=== PATIENT | male | born 1990 | race Caucasian/White ===

== ENCOUNTER 2020-07-07 20:58 | Emergency (ER) | payer SELFPAY ==
[2020-07-07] MEDS ORDERED: Sodium Chloride 0.9% 10 ML Syringe FLUSH PRN (21:07)
[2020-07-07] MEDS ORDERED: Sodium Chloride 0.9% 2.5 ML Syringe FLUSH PRN (21:07)
[2020-07-07] MEDS ORDERED: Ketorolac 30 MG/ML SDV IVPUSH ONE (21:07)
--- NOTE | 2020-07-07 21:14 | EDM.PDOC ---
ED HPI GENERAL MEDICAL PROBLEM - General Chief Complaint: Chest Pain Stated Complaint: CHEST PAIN Time Seen by Provider: 07/07/20 21:07 - History of Present Illness INITIAL COMMENTS - FREE TEXT/NARRATIVE: HISTORY AND PHYSICAL: History of present illness: This is a 29-year-old gentleman who has no history for hypertension, diabetes, prior CAD, negative family history of CAD, no tobacco, no cholesterol, who presents ER today complaining of left-sided chest pain that is been constant for 3 days. Patient reports that he has some discomfort in his left arm. Patient denies any nausea, vomiting, diarrhea, shortness of breath, diaphoresis. Patient reports no change with exertion or rest. Patient reports no change with inspiration or cough. Patient reports no change with meals or position. Patient reports that the pain is just been constantly there for 3 days straight. Patient denies any exacerbating or relieving factors. Patient denies any recent fevers, shakes, chills, nausea, vomiting, diarrhea, dysuria, frequency, urgency, abdominal pain, melena, bright red blood per rectum. Patient reports he has been tolerating p.o. solids and liquids well. Patient reports that he was recently diagnosed with coronavirus approximately 1 month ago but has had no recent symptoms. 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 Patient reports no increased exertional effort over the last several days. Review of systems: As per history of present illness and below otherwise all systems reviewed and negative. Past medical history: As per history of present illness and as reviewed below otherwise noncontributory. Surgical history: As per history of present illness and as reviewed below otherwise noncontributory. Social history: No reported history of drug or alcohol abuse. Family history: As per history of present illness and as reviewed below otherwise noncontributory. Physical exam: Constitutional: Patient is oriented to person, place, and time. Appears well- developed and well-nourished. No distress. HEENT: Moist mucous membranes Head: Normocephalic and atraumatic Eyes: Right eye exhibits no discharge. Left eye exhibits no discharge. No scleral icterus Neck: Normal range of motion. No tracheal deviation present. Cardiovascular: Normal rate and regular rhythm. Pulmonary: Effort normal, no respiratory distress. Abdominal: No distention Musculoskeletal: Normal range of motion Neurologic: Alert and oriented to person, place and time. Skin: [place], warm and dry. Psychiatric: Normal mood and affect. Behavior is normal. Judgment and thought content normal. Nursing note and vital signs have been reviewed Patient's ER physical exam is normal. Patient has no reproducible tenderness to palpation with palpation to his anterior chest wall. Patient has no pain with ambulation in the ED. Patient has no pain with deep inspiration or cough. Patient's heart is regular rate and rhythm with an S1-S2. Diagnostics: EKG: As interpreted by ER physician: Jessi: Nonspecific ST-T wave abnormalities Normal axis No evidence of ST elevation AR Normal sinus rhythm heart rate of 81 Chest Xray: Normal cardiac silhouette No infiltrates or effusions identified. No PTX No evidence of acute bony fracture. As interpreted by ER MD: Jessi [employer]: Toradol 30 mg IV Assessment and plan: This is a 29-year-old gentleman who presents to the ER today with atypical chest pain for cardiac etiology. Patient has had recent diagnosis of coronavirus. Patient will have a CBC, CMP, troponin, D-dimer checked. Patient's EKG is nondiagnostic in nature. Patient with a chest x-ray ordered. Patient given Toradol and will be reevaluated. 10:30 PM: Patient reevaluated by me. Patient reports that his pain has not changed while in the ED. Patient's ER work-up is been unremarkable. Patient has a normal CBC, CMP, troponin, D-dimer, EKG, chest x-ray. Etiology of the patient's pain is unclear however appears to be noncardiac, not PE, not dissection, not pneumonia, not pneumothorax in nature. Patient be discharged home with instructions to follow-up with his primary care physician. Reassessment at the time of disposition demonstrates that the patient is in no acute distress. The patient has remained stable throughout the entire ED visit and is without objective evidence for acute process requiring urgent intervention or hospitalization. The patient is stable for discharge, counseling is provided as documented above, discussed symptomatic treatment and specific conditions for return. I have spoken with the patient/caregiver and discussed todays findings, in addition to providing specific details for the plan of care. Questions are answered and there is agreement with the plan. Definitive disposition and diagnosis as appropriate pending reevaluation and review of above. 8:32 PM, 07/08/2020 Follow-up call made for continuity of care. Patient reports feels well with no change in symptoms. chest/ L arm Pain Score (Numeric/FACES): 6 - Related Data Allergies Allergy/AdvReac Type Severity Reaction Status Date / Time No Known Allergies Allergy Verified 07/07/20 21:03 Home Meds: Home Meds Omeprazole 20 mg PO DAILY 07/07/20 [History] ED ROS GENERAL - Review of Systems Review Of Systems: See Below ED EXAM, GENERAL - Physical Exam Exam: See Below #1 Interpretation EKG Interpretation Comments: EKG: As interpreted by ER physician: Jessi: Nonspecific ST-T wave abnormalities Normal axis No evidence of ST elevation AR Normal sinus rhythm heart rate of 81 Course - Vital Signs Last Recorded V/S: Last Vital Signs Temp 97.2 F 07/07/20 22:36 Pulse 74 07/07/20 22:36 Resp 18 07/07/20 22:36 BP 117/66 07/07/20 22:36 Pulse Ox 96 07/07/20 22:36 - Orders/Labs/Meds Orders: Active Orders 24 hr Category Date Time Status Saline Lock Insert [OM.PC] Stat Oth 07/07/20 21:07 Ordered Labs: Laboratory Tests 07/07/20 07/07/20 07/07/20 Range/Units 21:00 21:00 21:00 WBC 8.85 (4.0-11.0) K/uL RBC 4.93 (4.50-5.90) M/uL Hgb 15.5 (13.0-17.0) g/dL Hct 44.9 (38.0-50.0) % MCV 91.1 (80.0-98.0) fL MCH 31.4 (27.0-32.0) pg MCHC 34.5 (31.0-37.0) g/dL RDW Std Deviation 43.6 (28.0-62.0) fl RDW Coeff of [place] 13 (11.0-15.0) % Plt Count 245 (150-400) K/uL MPV 12.30 H (7.40-12.00) fL Neut % (Auto) 40.3 L (48.0-80.0) % Lymph % (Auto) 47.3 H (16.0-40.0) % [place] % (Auto) 9.5 (0.0-15.0) % Eos % (Auto) 2.7 (0.0-7.0) % Baso % (Auto) 0.2 (0.0-1.5) % Neut # (Auto) 3.6 (1.4-5.7) K/uL Lymph # (Auto) 4.2 H (0.6-2.4) K/uL [place] # (Auto) 0.8 (0.0-0.8) K/uL Eos # (Auto) 0.2 (0.0-0.7) K/uL Baso # (Auto) 0.0 (0.0-0.1) K/uL Nucleated RBC % 0.0 /100WBC Nucleated RBCs # 0 K/uL D-Dimer, Quantitative 0.29 (0.0-0.50) mg/L FEU Sodium 144 (136-148) mmol/L Potassium 3.6 (3.5-5.1) mmol/L Chloride 104 (98-107) mmol/L Carbon Dioxide 28.4 (21.0-32.0) mmol/L BUN 18 (7.0-18.0) mg/dL Creatinine 1.0 (0.8-1.3) mg/dL Est Cr Clr Drug Dosing 116.09 mL/min Estimated GFR (MDRD) > 60.0 ml/min Glucose 86 (74-106) mg/dL Calcium 9.4 (8.5-10.1) mg/dL Total Bilirubin 0.5 (0.2-1.0) mg/dL AST 27 (15-37) IU/L ALT 45 (14-63) IU/L Alkaline Phosphatase 36 L (46-116) U/L Troponin I < 0.050 (0.000-0.056) ng/mL Total Protein 8.6 H (6.4-8.2) g/dL Albumin 4.5 (3.4-5.0) g/dL Globulin 4.1 H (2.6-4.0) g/dL Albumin/Globulin Ratio 1.1 (0.9-1.6) Meds: Medications Discontinued Medications Generic Name Dose Route Start Last Admin Trade Name Freq PRN Reason Stop Dose Admin Ketorolac Tromethamine 30 mg 07/07/20 21:07 07/07/20 21:18 Toradol IVPUSH 07/07/20 21:08 30 mg ONETIME ONE Administration Sodium Chloride 10 ml 07/07/20 21:07 Saline Flush FLUSH ASDIRECTED PRN Keep Vein Open Sodium Chloride 2.5 ml 07/07/20 21:07 Saline Flush FLUSH ASDIRECTED PRN Keep Vein Open Departure - Departure Time of Disposition: 22:28 Disposition: Home, Self-Care 01 Condition: Good Clinical Impression: Nonspecific chest pain - Discharge Information Instructions: Nonspecific Chest Pain, Adult Referrals: PCP,None [Primary Care Provider] - Forms: ED Department Discharge Additional Instructions: Evaluated in the ER today for chest pain. The work-up in the emergency department revealed normal blood tests including a normal CBC, complete metabolic profile, troponin, D-dimer. Your chest x-ray and your EKG are all perfectly normal. The etiology of your pain is unclear however it does not appear to be secondary to a cardiac or pulmonary cause. This may be related to muscle, cartilage, pinched nerve pain. We recommend taking Tylenol and ibuprofen to assist with pain until you are able to follow-up with your family doctor. The following information is given to patients seen in the emergency department who are being discharged to home. This information is to outline your options for follow-up care. We provide all patients seen in our emergency department with a follow-up referral. The need for follow-up, as well as the timing and circumstances, are variable depending upon the specifics of your emergency department visit. If you don't have a primary care physician on staff, we will provide you with a referral. We always advise you to contact your personal physician following an emergency department visit to inform them of the circumstance of the visit and for follow-up with them and/or the need for any referrals to a consulting specialist. The emergency department will also refer you to a specialist when appropriate. This referral assures that you have the opportunity for follow-up care with a specialist. All of these measure are taken in an effort to provide you with optimal care, which includes your follow-up. Under all circumstances we always encourage you to contact your private physician who remains a resource for coordinating your care. When calling for follow-up care, please make the office aware that this follow-up is from your recent emergency room visit. If for any reason you are refused follow-up, please contact the [facility] Emergency Department at and asked to speak to the emergency department charge nurse. [facility] [address], [place] [address] [facility] [address] [place] [id number] - My Orders Last 24 Hours: My Active Orders 07/07/20 21:07 Saline Lock Insert [OM.PC] Stat - Assessment/Plan Last 24 Hours: My Active Orders 07/07/20 21:07 Saline Lock Insert [OM.PC] Stat
[2020-07-07 21:34] LABS: BLOOD UREA NITROGEN,BUN 18 mg/dL (7.0-18.0); CARBON DIOXIDE,CO2 28.4 mmol/L (21.0-32.0); CHLORIDE,CL 104 mmol/L (98-107); GLUCOSE RANDOM 86 mg/dL (74-106); POTASSIUM,K 3.6 mmol/L (3.5-5.1); SODIUM,NA 144 mmol/L (136-148)
--- NOTE | 2020-07-07 21:46 | CR ---
INDICATION: Chest pain for 3 days TECHNIQUE: Chest radiograph 2 views COMPARISON: None FINDINGS: Moderate degradation of image quality noted due to body habitus. Mediastinum: The mediastinum is normal in appearance. The heart silhouette is normal in size and morphology. Lung: Both lungs are unremarkable in appearance with small lung volumes. No sign of pleural effusion seen. No pneumothorax is identified. Bone and Soft tissue: Unremarkable for age. IMPRESSION: 1. No acute cardiopulmonary disease is seen. Dictated by: Juan Jose Smyth MD @ 07/07/2020 21:44:14 (Electronically Signed)
== END 2020-07-07 22:36 | disposition home or self-care (01) ==
LOC: MW.ED 20:58
DX: R07.9 Chest pain, unspecified (principal); Z86.19 Personal history of other infectious and parasitic diseases
CPT/HCPCS: 36415; 71046; 80053; 84484; 85025; 85379; 93005; 96374; 99285; J1885; 93010; 99284

== ENCOUNTER 2021-02-03 17:03 | Emergency (ER) | payer BC ==
--- NOTE | 2021-02-03 17:49 | EDM.PDOC ---
ED HPI GENERAL MEDICAL PROBLEM - General Chief Complaint: Upper Extremity Injury/Pain Stated Complaint: POSSABLY TORE ROTATOR Time Seen by Provider: 02/03/21 17:25 Source of Information: Reports: Patient History Limitations: Reports: No Limitations - History of Present Illness INITIAL COMMENTS - FREE TEXT/NARRATIVE: HISTORY AND PHYSICAL: History of present illness: Patient is a 30-year-old male who presents to the emergency room with complaints of left shoulder pain. States approximately a week ago he noticed left shoulder pain that has progressively gotten worse. He did see his primary care provider about a week ago who gave him a prescription for anti-inflammatories and muscle relaxers. He denies any injury, trauma or falls. 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 Over the past few days he has noticed increased pain with lifting the left arm at the shoulder joint and having to do any kind of rotation with the shoulder. He is concerned he has a rotator cuff injury. It is currently affecting his daily routine and impeding his work requirements. He states he is unable to get into physical therapy for at least 2 months but believes an MRI would be beneficial for diagnosis. He denies any numbness, tingling or weakness of the extremity. He offers no systemic complaints. Review of systems: As per history of present illness and below otherwise all systems reviewed and negative. Past medical history: As per history of present illness and as reviewed below otherwise noncontributory. Surgical history: As per history of present illness and as reviewed below otherwise noncontributory. Social history: See social history for further information Family history: As per history of present illness and as reviewed below otherwise noncontributory. Physical exam: General: Well developed and well nourished. Alert and orientated x 3. Nontoxic in appearance and in no acute distress. Vital signs are stable and have been reviewed by me. Nursing notes were reviewed. HEENT: Atraumatic, normocephalic, pupils equal and reactive bilaterally, negative for conjunctival pallor or scleral icterus, mucous membranes moist, TMs normal bilaterally, throat clear, neck supple, nontender, trachea midline. No drooling or trismus noted. No meningeal signs. No hot potato voice noted. Lungs: Clear to auscultation bilaterally. No wheezes, rales, or rhonchi. Chest nontender. Normal work of breathing, no accessory muscles used. Heart: S1S2, regular rate and rhythm without overt murmur, gallops, or rubs. No JVD. No peripheral edema Abdomen: Soft, nondistended, nontender. Normoactive bowel sounds. Negative for masses or costovertebral tenderness. C-spine/Back: No pinpoint vertebral tenderness upon palpation. No crepitus, step-offs or obvious deformities. Patient is ambulatory into the emergency room without difficulty or deficit. Able to rock back on heels and walk on toes. Denies any urinary or fecal incontinence. Denies any numbness, tingling or saddle paresthesia. No concerns of serious infection, fracture or cord compression, or cauda equina syndrome. Deep tendon reflexes brisk bilaterally. Genitourinary/Rectal: Deferred. Skin: Intact, warm, dry. No lesions or rashes noted. Hematologic: No petechiae or purpra. Mucosa appropriate color and normal nail bed color and refill. Extremities: Atraumatic, limited range of motion without inducing pain of the left shoulder. At about 25 degrees he starts to have pain with forward and lateral motion of the left shoulder. He is able to assist the left shoulder up to a 90 degree and rotate at the wrist ("pouring the can out" movement) although states it is very painful. He has strong equal grasp bilaterally. No pain with motion/movement of the elbow wrist or hand. No clavicular pain with palpation until getting to the rotator cuff region. Otherwise he moves all other extremities per self without difficulty or deficits. Strong radial pulses bilaterally. Cap refill less than 3 seconds. Neurovascular unremarkable. Neuro: Awake, alert, oriented. Cranial nerves II through XII unremarkable. Cerebellum unremarkable. Motor and sensory unremarkable throughout. Exam nonfocal. Psychiatric: Mood and affect are appropriate. Normal thought process. Answering questions appropriately. Notes: *This patient was seen and evaluated during the 2019 SARS-CoV-2 novel coronavirus pandemic period. Community viral transmission is ongoing at time of this encounter and the emergency department is operating under pandemic response procedures. Patient is a 30-year-old male who presents to the emergency room with concerns of a rotator cuff injury. He was seen in his primary care office last week and given anti-inflammatories and muscle relaxers. He states the pain is progressively getting worse and feels he needs an MRI. He is aware that the emergency room is unable to do MRIs of nonemergent matters. He is agreeable to doing an x-ray today. I will do an outpatient MRI as I do have concern of a rotator cuff injury. X-ray shows no acute findings. I have talked with the patient about today's findings, in addition to providing specific details for plan of care. Reassessment at the time of disposition demonstrates that the patient is in no acute distress. The patient is stable for discharge, counseling was provided and we discussed in great detail signs and symptoms that would prompt them to return to the Emergency Department. Medication, follow up and supportive care measures were reviewed and discussed. Voices understanding and is agreeable to plan of care. Denies any further questions or concerns at this time. Diagnostics: X-ray shoulder Therapeutics: Sling Prescription: Outpatient MRI Impression: Rotator cuff injury, left Plan: 1. You were evaluated today on an emergent basis. Your x-ray is unremarkable. I would like you to continue taking the medications that are prescribed to you for comfort reasons. Rest and limit any overhead activities. Try to avoid any activities that cause pain to the shoulder. You can do outpatient physical therapy to help strengthen and restore movement of the shoulder. You have been given an outpatient MRI form, please confirm with your insurance that they will cover this and then call to schedule your MRI. These results will be sent to Dr. Pascal. 2. Ibuprofen as needed for pain and fever management. 3. We encourage you to follow up with Dr Pascal and/or Orthopedics for re- evaluation and further care/management. 4. If your symptoms should worsen, new symptoms develop or any of the signs and symptoms we discussed should arise please return to the emergency room or call 911 (if needed) Definitive disposition and diagnosis as appropriate pending reevaluation and review of above. left arm Pain Score (Numeric/FACES): 6 - Related Data Allergies Allergy/AdvReac Type Severity Reaction Status Date / Time No Known Allergies Allergy Verified 02/03/21 17:30 Home Meds: Home Meds Omeprazole 20 mg PO DAILY 07/07/20 [History] Gabapentin [Neurontin] 02/03/21 [History] Phentermine HCl 02/03/21 [History] Past Medical History - Past Health History Medical/Surgical History: Denies Medical/Surgical History Other Musculoskeletal History: back sx - Infectious Disease History Infectious Disease History: Reports: None - Past Surgical History Other Musculoskeletal Surgeries/Procedures:: lower back pain/surgery Social & Family History - Family History Family Medical History: No Pertinent Family History - Tobacco Use Tobacco Use Status *Q: Never Tobacco User - Caffeine Use Caffeine Use: Reports: None - Recreational Drug Use Recreational Drug Use: No Review of Systems - Review of Systems Review Of Systems: Comprehensive ROS is negative, except as noted in HPI. ED EXAM, GENERAL - Physical Exam Exam: See Below (See dictation) Course - Vital Signs Last Recorded V/S: Last Vital Signs Temp 97.7 F 02/03/21 17:24 Pulse 96 02/03/21 17:24 Resp 16 02/03/21 17:24 BP 122/87 02/03/21 17:24 Pulse Ox 97 02/03/21 17:24 - Orders/Labs/Meds Orders: Active Orders 24 hr Category Date Time Status Shoulder Comp Lt [CR] Stat Exams 02/03/21 17:34 Taken DME for Discharge [COMM] Stat Oth 02/03/21 17:59 Ordered Departure - Departure Time of Disposition: 18:50 Disposition: Home, Self-Care 01 Clinical Impression: Injury of left rotator cuff Qualifiers: Encounter type: initial encounter Qualified Code(s): S46.002A - Unspecified injury of muscle(s) and tendon(s) of the rotator cuff of left shoulder, initial encounter - Discharge Information Instructions: Tendinitis, [id number] Referrals: Minh Pascal MD [Primary Care Provider] - Forms: ED Department Discharge Additional Instructions: The following information is given to patients seen in the emergency department who are being discharged to home. This information is to outline your options for follow-up care. We provide all patients seen in our emergency department with a follow-up referral. The need for follow-up, as well as the timing and circumstances, are variable depending upon the specifics of your emergency department visit. If you don't have a primary care physician on staff, we will provide you with a referral. We always advise you to contact your personal physician following an emergency department visit to inform them of the circumstance of the visit and for follow-up with them and/or the need for any referrals to a consulting specialist. The emergency department will also refer you to a specialist when appropriate. This referral assures that you have the opportunity for follow-up care with a specialist. All of these measure are taken in an effort to provide you with optimal care, which includes your follow-up. Under all circumstances we always encourage you to contact your private physician who remains a resource for coordinating your care. When calling for follow-up care, please make the office aware that this follow-up is from your recent emergency room visit. If for any reason you are refused follow-up, please contact the [facility] Emergency Department at and asked to speak to the emergency department charge nurse. [facility] [address] [place] [address] [id number] [address] [address] Thank you for choosing the [facility] emergency department in [place] for your medical needs today. It was a pleasure caring for you. Today you were seen in the emergency department for shoulder injury. 1. You were evaluated today on an emergent basis. Your x-ray is unremarkable. I would like you to continue taking the medications that are prescribed to you for comfort reasons. Rest and limit any overhead activities. Try to avoid any activities that cause pain to the shoulder. You can do outpatient physical therapy to help strengthen and restore movement of the shoulder. You have been given an outpatient MRI form, please confirm with your insurance that they will cover this and then call to schedule your MRI. These results will be sent to Dr. Pascal. 2. Ibuprofen as needed for pain and fever management. 3. We encourage you to follow up with Dr Pascal and/or Orthopedics for re- evaluation and further care/management. 4. If your symptoms should worsen, new symptoms develop or any of the signs and symptoms we discussed should arise please return to the emergency room or call 911 (if needed) Sepsis Event Note (ED) - Evaluation Sepsis Screening Result: No Definite Risk - Focused Exam Vital Signs: Vital Signs Temp Pulse Resp BP Pulse Ox 02/03/21 17:24 97.7 F 96 16 122/87 97 - My Orders Last 24 Hours: My Active Orders 02/03/21 17:34 Shoulder Comp Lt [CR] Stat 02/03/21 17:59 DME for Discharge [COMM] Stat - Assessment/Plan Last 24 Hours: My Active Orders 02/03/21 17:34 Shoulder Comp Lt [CR] Stat 02/03/21 17:59 DME for Discharge [COMM] Stat
--- NOTE | 2021-02-03 18:51 | CR ---
Indication: Shoulder pain Technique: Three views left shoulder Comparison: None Findings: Bones: Alignment is normal. No fractures or bone lesions. Joint spaces: Unremarkable. Soft tissues: Unremarkable. Impression: Negative. Dictated by Mely Ritter MD @ 02/03/2021 6:49:[address] Mely Ritter @ Feb 03 2021 6:49PM
== END 2021-02-03 19:04 | disposition home or self-care (01) ==
LOC: MW.ED 17:03
DX: S46.002A Unspecified injury of muscle(s) and tendon(s) of the rotator cuff of left shoulder, initial encounter (principal); X50.0XXA Overexertion from strenuous movement or load, initial encounter
CPT/HCPCS: 73030-26-LT; 73030-LT; 99283; 99283-25

== ENCOUNTER 2021-05-30 08:06 | Emergency (ER) | payer BC ==
--- NOTE | 2021-05-30 08:37 | EDM.PDOC ---
ED HPI GENERAL MEDICAL PROBLEM - General Chief Complaint: Genitourinary Problem Stated Complaint: RIGHT SIDE TESTICULAR PAIN Time Seen by Provider: 05/30/21 08:11 - History of Present Illness INITIAL COMMENTS - FREE TEXT/NARRATIVE: CHIEF COMPLAINT(S): Testicular pain HISTORY OF PRESENT ILLNESS: This is a 30-year-old man and without any significant past medical history who comes to the emergency department with a chief complaint of testicular pain. The patient states that for approximately 3 months now on and off he has been experiencing right testicular pain. He states that the pain is now constant which he describes as squeezing rated 7 out of 10. There are no exacerbating or relieving factors. He denies any swelling. He denies any redness. He states that he does not have any penile discharge, suprapubic tenderness, dysuria or hematuria. He denies any back pain. States that he is never had anything like this before and denies any injury to his testicles or groin. He states that he is not sexually active and did have a vasectomy approximately 1-1/2 years ago. He states that he is tried Tylenol and meloxicam without any relief. He denies any pain with bowel movements. He denies any other symptoms. REVIEW OF SYSTEMS: Constitutional: Denies fever, chills. Eyes: Denies eye pain Ears, Nose, Mouth, & Throat: Denies earache Cardiovascular: Denies chest pain Respiratory: Denies shortness of breath Gastrointestinal: Denies Nausea, vomiting, diarrhea, hematochezia. Genitourinary: Positive for right testicular pain. Denies hematuria, dysuria, penile discharge skin:Denies a rash MSK: Denies joint pain Neurological: Denies blurred vision Psychiatric: Denies depression PAST MEDICAL HISTORY: As per history of present illness and as reviewed below otherwise noncontributory. SURGICAL HISTORY: As per history of present illness and as reviewed below otherwise noncontributory. SOCIAL HISTORY: As per history of present illness and as reviewed below otherwise noncontributory. FAMILY HISTORY: As per history of present illness and as reviewed below otherwise noncontributory. EXAMINATION OF ORGAN SYSTEMS/BODY AREAS: Constitutional: Blood pressure was 134/86, heart rate 85, respiratory rate 18 with an oxygen saturation of 99% on room air. Temperature 36.1 General: Well-appearing man who is in no acute distress Psychiatric: Appropriate mood and affect. Eyes: No scleral icterus or conjunctival erythema Cardiovascular: Regular, rate, and rhythm. No gallops, murmurs, or rubs. Bilateral upper extremity pulses symmetric and intact. Respiratory: Lungs clear to auscultation bilaterally. No wheezes, rales, or rhonchi. Gastrointestinal: Soft, non-tender, non-distended. Normoactive bowel sounds Genitourinary: No suprapubic tenderness patient has normal male external genitalia. There is no penile discharge. No inguinal hernias noted. Bilateral testes are descended. No obvious swelling. No transverse lie. Positive cremasteric reflex. Minimal tenderness on examination. Epididymis is mildly ten macy on the right testicle. Musculoskeletal: Normal range of motion. Skin: No lesions or abrasions. Neurological: Alert, GCS 15 MEDICAL DECISION MAKING AND COURSE IN THE ED WITH INTERPRETATION/REVIEW OF DIAGNOSTIC STUDIES: This is a 30-year-old man with out any significant past medical history who comes to the emergency department with right testicular pain off and on for the last 3 months who has no obvious exam abnormalities. Given the epididymal pain we'll provide the patient with Toradol for pain relief. Will obtain scrotal ultrasound to evaluate for testicular torsion versus other cause. DDx: Testicular torsion, epididymitis, varicocele, spermatocele The radiological images were viewed by myself along with reading the report from the radiologist. Scrotal ultrasound with duplex does not reveal any evidence of testicular torsion. There is incidental 2 x 3 mm right epididymal head cyst. There are trace bilateral hydroceles. No evidence of varicoceles. After imaging I did discuss results with the patient. At this time I do believe the patient's discomfort could be secondary to the epididymal cyst. Given that the patient does have a follow-up appointment scheduled with urology I did encourage the patient to keep that appointment. He is to use scrotal support and use Tylenol and Motrin for pain relief. He was amenable to discharge at this time and had no further questions. He was given strict return precautions. DISPOSITION: The patient was discharged home in stable condition. The patient will follow up with urology at his scheduled appointment CONDITION: Fair PROCEDURES: None FINAL IMPRESSION(S)/DIAGNOSES: 1. Acute right testicular pain likely secondary to epididymal head cyst Timbo Archer M.D. testicle Pain Score (Numeric/FACES): 7 - Related Data Allergies Allergy/AdvReac Type Severity Reaction Status Date / Time No Known Allergies Allergy Verified 05/30/21 08:39 Home Meds: Home Meds Omeprazole 20 mg PO DAILY 07/07/20 [History] Gabapentin [Neurontin] 02/03/21 [History] Phentermine HCl 02/03/21 [History] Past Medical History - Past Health History Medical/Surgical History: Denies Medical/Surgical History Other Musculoskeletal History: back sx - Infectious Disease History Infectious Disease History: Reports: None - Past Surgical History Other Musculoskeletal Surgeries/Procedures:: lower back pain/surgery Social & Family History - Family History Family Medical History: No Pertinent Family History - Caffeine Use Caffeine Use: Reports: None ED ROS GENERAL - Review of Systems Review Of Systems: See Below ED EXAM, GENERAL - Physical Exam Exam: See Below Course - Vital Signs Last Recorded V/S: Last Vital Signs Temp 36.1 C 05/30/21 08:32 Pulse 85 05/30/21 08:32 Resp 18 05/30/21 08:32 BP 134/86 05/30/21 08:32 Pulse Ox - Orders/Labs/Meds Meds: Medications Discontinued Medications Generic Name Dose Route Start Last Admin Trade Name Duy PRN Reason Stop Dose Admin Ketorolac Tromethamine 15 mg 05/30/21 09:27 05/30/21 09:53 Ketorolac 15 Mg/Ml Sdv IM 05/30/21 09:28 15 mg ONETIME ONE Administration Departure - Departure Time of Disposition: 10:19 Disposition: Home, Self-Care 01 Condition: Fair Clinical Impression: Epididymal cyst - Discharge Information *PRESCRIPTION DRUG MONITORING PROGRAM REVIEWED*: No *COPY OF PRESCRIPTION DRUG MONITORING REPORT IN PATIENT ERIK: No Instructions: Scrotal Masses, Spermatocele Referrals: Minh Pascal MD [Primary Care Provider] - Forms: ED Department Discharge Additional Instructions: You were evaluated today on an emergent basis. At this time your ultrasound did reveal what is called an epididymal cyst on the right testicle. I do believe this is likely the cause of your pain given its duration. I recommend that you use underwear that provide scrotal support such as briefs. I recommend you keep your appointment with your urologist in 2 days. Please use Tylenol Motrin as needed. If you have any worsening pain, fever, swelling or like you to return to the emergency department. [facility] CARMEL Camara [phone] *When you call for an appointment say "I was seen in the ER in [place] and I have a kidney stone and need follow up this week." The patient is informed of any results of their evaluation and diagnostic workup and all questions are answered. They are given discharge instructions and return precautions. The patient is stable for discharge. The patient states they understand and agree with the plan and that they will return if their symptoms get worse or if they have any new concerns. The following information is given to patients seen in the emergency department who are being discharged to home. This information is to outline your options for follow-up care. We provide all patients seen in our emergency department with a follow-up referral. The need for follow-up, as well as the timing and circumstances, are variable depending upon the specifics of your emergency department visit. If you don't have a primary care physician on staff, we will provide you with a referral. We always advise you to contact your personal physician following an emergency department visit to inform them of the circumstance of the visit and for follow-up with them and/or the need for any referrals to a consulting specialist. The emergency department will also refer you to a specialist when appropriate. This referral assures that you have the opportunity for follow-up care with a specialist. All of these measure are taken in an effort to provide you with optimal care, which includes your follow-up. Under all circumstances we always encourage you to contact your private physician who remains a resource for coordinating your care. When calling for follow-up care, please make the office aware that this follow-up is from your recent emergency room visit. If for any reason you are refused follow-up, please contact the [facility] Emergency Department at and asked to speak to the emergency department charge nurse.
[2021-05-30] MEDS ORDERED: Ketorolac 15 MG/ML SDV IM ONE (09:27)
--- NOTE | 2021-05-30 09:52 | US ---
INDICATION: Right testicular pain COMPARISON: none TECHNIQUE: Rondon scale imaging was performed of the scrotum. In addition color Doppler and spectral Doppler analysis was performed of the testes. FINDINGS: The testes demonstrate normal arterial and venous blood flow on color Doppler and spectral Doppler analysis. The testes have uniform echogenicity with no evidence of a suspicious mass or area of inflammation. The right testis measures 4.9 x 2.4 x 3.4 cm in size and the left testis measures 4.8 x 2.4 x 3.4 cm. 2 x 3 millimeter right epididymal head cyst. Trace bilateral hydroceles. No varicocele. IMPRESSION: Normal ultrasound of the testicles. Incidental 2 x 3 millimeter right epididymal head cyst. Dictated by Hero Walton MD @ 05/30/2021 9:50:13 AM (Electronically Signed)
--- NOTE | 2021-05-31 13:20 | US ---
EXAM DATE: 05/30/21 PATIENT'S AGE: 30 Patient: ABIODUN FINLEY [facility] Study: US-Testicle -05/30/2021 9:19:46 AM Ordering Physician: Suzi Izquierdo Final Report: INDICATION: Right testicular pain COMPARISON: none TECHNIQUE: Rondon scale imaging was performed of the scrotum. In addition color Doppler and spectral Doppler analysis was performed of the testes. FINDINGS: The testes demonstrate normal arterial and venous blood flow on color Doppler and spectral Doppler analysis. The testes have uniform echogenicity with no evidence of a suspicious mass or area of inflammation. The right testis measures 4.9 x 2.4 x 3.4 cm in size and the left testis measures 4.8 x 2.4 x 3.4 cm. 2 x 3 millimeter right epididymal head cyst. Trace bilateral hydroceles. No varicocele. IMPRESSION: Normal ultrasound of the testicles. Incidental 2 x 3 millimeter right epididymal head cyst. Dictated by Hero Walton MD @ 05/30/2021 9:50:13 AM Signed by: Hero Walton MD @05/30/2021 9:50:13 AM (Electronic Signature) Report Signed by Proxy. BRITTANIE
== END 2021-05-30 10:40 | disposition home or self-care (01) ==
LOC: MW.ED 08:06
DX: L72.0 Epidermal cyst (principal); Z79.899 Other long term (current) drug therapy
CPT/HCPCS: 76870; 93976; 96372; 99284; J1885